=== PATIENT | male | born 1970 | race African-American/Black ===

== ENCOUNTER 2019-10-18 00:07 | Emergency (ER) | payer MEDICAID ==
[~2019-10-18] VITALS: Ht 185.4 cm; Wt 107.0 kg
[2019-10-18] MEDS ORDERED: METHYLPREDNISOLONE SOD SUCC 125 MG/2 ML VIAL IM STA (00:28)
[2019-10-18] MEDS ORDERED: ACETAMINOPHEN 325MG TABLET PO STA (00:28)
[2019-10-18] MEDS ORDERED: ALBUTEROL 6.7GM HFA INHALER ORI ONE (00:30)
[2019-10-18 02:41] VITALS: BP 130/86
== END 2019-10-18 02:42 | disposition home or self-care (01) ==
LOC: ER 00:07
DX: J44.1 Chronic obstructive pulmonary disease with (acute) exacerbation (principal); R03.0 Elevated blood-pressure reading, without diagnosis of hypertension; F17.200 Nicotine dependence, unspecified, uncomplicated; E11.9 Type 2 diabetes mellitus without complications; E66.9 Obesity, unspecified; Z68.31 Body mass index [BMI] 31.0-31.9, adult; Z79.51 Long term (current) use of inhaled steroids
CPT/HCPCS: 71045; 94640; 96372; 99283; J2930; Z7610